=== PATIENT | female | born 1990 | race Asian ===

== ENCOUNTER 2025-02-17 17:34 | Emergency (ER) | payer SELFPAY ==
[~2025-02-17] VITALS: Ht 165.1 cm; Wt 56.0 kg
[2025-02-17 17:36] VITALS: O2SAT 99
[2025-02-17] MEDS: FENTANYL CITRATE/PF 50MCG/ML 2ML VIAL IV ONE ×2 (18:02→19:24)
[2025-02-17 18:25] LABS: CHLORIDE 105 mEq/L (98-107); SODIUM 138 mEq/L (136-145)
[2025-02-17 18:26] LABS: CARBON DIOXIDE 22 mEq/L (21-32)
[2025-02-17 18:31] LABS: CREATININE 0.8 mg/dL (0.6-1.0); GLUCOSE 96 mg/dL (70-105); UREA NITROGEN BLOOD 18 mg/dL (9-23)
[2025-02-17 18:37] LABS: HCG SCREEN NEGATIVE
[2025-02-17 20:12] LABS: BASOPHILS % 0.4 % (0.0-2.0); EOSINOPHILS % 1.1 % (0.0-5.0); HEMATOCRIT. 40.1 % (36.0-48.0); HEMOGLOBIN. 13.2 g/dL (12.0-16.0); LYMPHOCYTES % 14.3 % (20.0-50.0); MEAN CORPUSCULAR HEMOGLOBIN 30.2 pg (28.0-32.0); MEAN CORPUSCULAR HGB CONC 32.9 g/dL (31.0-37.0); MEAN CORPUSCULAR VOLUME 91.6 fL (81.0-99.0); MEAN PLATELET VOLUME 7.2 fl (7.4-10.4); NEUTROPHILS % 79.2 % (40.0-76.0); PLATELET 281 x1000/uL (130-400); RED BLOOD CELL COUNT 4.38 mill/uL (4.2-5.4); RED CELL DISTRIBUTION WIDTH 13.3 % (11.6-14.6)
[2025-02-17 20:23] LABS: INR 0.9; PARTIAL THROMBOPLASTIN TIME 30.5 sec (23.4-31.0); PROTHROMBIN TIME 9.9 sec (9.6-11.0)
[2025-02-17 20:24] LABS: ALANINE AMINOTRANSFERASE 7 IU/L (10-49); ASPARTATE AMINOTRANSFERASE 13 IU/L (<34)
[2025-02-17 20:25] LABS: BILIRUBIN DIRECT < 0.1 mg/dL (<=3.0); BILIRUBIN TOTAL 0.4 mg/dL (0.1-1.0); PROTEIN TOTAL 6.7 g/dL (6.0-8.3)
[2025-02-17 20:32] LABS: CLARITY URINE CLEAR (CLEAR); COLOR URINE YELLOW (YELLOW); GLUCOSE URINE NEGATIVE (NEGATIVE); KETONES URINE 1+ (NEGATIVE); LEUKOCYTE ESTERASE URINE NEGATIVE (NEGATIVE); NITRITE URINE NEGATIVE (NEGATIVE); OCCULT BLOOD URINE NEGATIVE (NEGATIVE); PH URINE 6.5 (4.5-8.0); PROTEIN URINE NEGATIVE (NEGATIVE); SPECIFIC GRAVITY URINE 1.046 (1.005-1.030); UROBILINOGEN URINE 0.2 E.U./dL (0.2-1.0)
[2025-02-17] MEDS: KETOROLAC 30MG/ML VIAL IV ONE (21:19)
[2025-02-17] MEDS ORDERED: HYDR-4001 MT (21:46)
[2025-02-17] MEDS ORDERED: IBUP-2030 MT (21:46)
[2025-02-17 22:22] VITALS: BP 116/71; PULSE 78; RESP 20; TEMP 36.7; O2SAT 99
[2025-02-17] MEDS ORDERED: IOHEXOL-300 100 ML BOTTLE ONE (23:31)
== END 2025-02-17 22:28 | disposition home or self-care (01) ==
LOC: ER 17:34
DX: S22.32XA Fracture of one rib, left side, initial encounter for closed fracture (principal); R51.9 Headache, unspecified; Z97.5 Presence of (intrauterine) contraceptive device; V19.88XA Pedal cyclist (driver) (passenger) injured in other specified transport accidents, initial encounter; Y93.89 Activity, other specified; Y92.89 Other specified places as the place of occurrence of the external cause; Y99.8 Other external cause status
CPT/HCPCS: 99285; 70450; 96374; 96375; 80076; 80048; 81003; 84703; 83690; 85025; 85610; 85730; 86850; 86900; 86901; 36415; 72125; 74177; J1885; J3010; Q9967